=== PATIENT | female | born 1980 | race Caucasian/White ===

== ENCOUNTER 2023-09-23 12:07 | Emergency (ER) | payer OTHER, SELFPAY ==
[2023-09-23 12:17] VITALS: BP 111/87; PULSE 88; RESP 16; TEMP 36.5; O2SAT 100
--- NOTE | 2023-09-23 12:31 | ED.SKABFB ---
HPI - Skin/Abscess/Foreign Bdy General Chief complaint: Skin/Abscess/Foreign Body Stated complaint: RASH/NERVE PAIN Time Seen by Provider: 09/23/23 12:31 Source: patient, RN notes reviewed and old records reviewed Mode of arrival: ambulatory Limitations: no limitations History of Present Illness HPI narrative: 43 year old female presents to [facility] care with complaints of red raised rash to her upper right back scapula area starting on Thursday with extension of rash to her right lateral chest and to under right breast and middle right breast region today in patches, Patient reports that rash is painful, no exudates or drainage noted. Patient has been taking Ibuprofen and Tylenol for her disconfort. MD complaint: rash Onset (ago): day(s) (rash 3 rd day increased today) Location: back (right back to right side of chest under right breat and mid right breast) Severity scale (1-10): 6 Treatments prior to arrival: NSAID and other (Tylenol) Related Data Home Medications Medication Instructions Recorded Confirmed dextroamphetamine-amphetamine 10 10 mg PO DAILY 09/23/23 09/23/23 mg tablet hydrocodone 10 mg-acetaminophen 1 tablet PO QID PRN Migraine 09/23/23 09/23/23 325 mg tablet Headache Allergies Allergy/AdvReac Type Severity Reaction Status Date / Time Sulfa (Sulfonamide Allergy Unknown Skin Verified 09/23/23 12:29 Antibiotics) Reaction Review of Systems Review of Systems: CONSTITUTIONAL: Denies fever, chills, or sweats. CARDIOVASCULAR: Denies chest pain, palpitations, or edema. RESPIRATORY: Denies cough or dyspnea. SKIN: Reports rash to right scapula, right lateral chest under right breast and mid right breast, in red raised patches which are painful MUSCULOSKELETAL: Denies joint pain or myalgia. NEUROLOGIC: Denies headache, numbness, or weakness. 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 There is no relevant family history pertinent to the presenting complaint Exam Narrative: GENERAL: Well-appearing, well-nourished, and in no acute distress. HEAD: Normocephalic, atraumatic. EYES: PERRLA, conjunctivae clear, and EOMI. ENT: Mucous membranes moist. Oropharynx without edema, erythema or lesions., tonsils absent NECK: Supple. No lymphadenopathy CHEST: Clear to
== END 2023-09-23 12:46 | disposition home or self-care (01) ==
PROVIDERS: Emergency Provider Registered Nurse
DX: B02.9 Zoster without complications (principal); Z87.891 Personal history of nicotine dependence; Z85.820 Personal history of malignant melanoma of skin
CPT/HCPCS: 99213; G0463

== ENCOUNTER 2025-01-08 17:23 | Emergency (ER) | payer OTHER, SELFPAY ==
[2025-01-08 17:33] VITALS: BP 121/82; PULSE 95; RESP 16; TEMP 36.2; O2SAT 99
--- NOTE | 2025-01-08 17:42 | ED.WOUNDLAC ---
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 She cut the thumb on a metal fan blad, when she moved the fan while it was running. Says the front cage of the fan had been removed for cleaning. Bleeding controlled on arrival. Unsure of last tetanus. Related Data Home Medications ?Medication ?Instructions ?Recorded ?Confirmed ?Last Taken ?Type dextroamphetamine-amphetamine 10 10 mg PO DAILY 09/23/23 09/23/23 Unknown History mg tablet hydrocodone 10 mg-acetaminophen 1 tablet PO QID PRN Migraine 09/23/23 09/23/23 Unknown History 325 mg tablet Headache Allergies Allergy/AdvReac Type Severity Reaction Status Date / Time Sulfa (Sulfonamide Allergy Unknown Skin Verified 01/08/25 17:32 Antibiotics) Reaction Review of Systems Review of Systems: CONSTITUTIONAL: Denies body aches, fever, chills, or sweats. EYES: Denies visual changes, redness, or discharge. ENT: Denies rhinorrhea, congestion CARDIOVASCULAR: Denies chest pain, palpitations, or edema. RESPIRATORY: Denies cough or dyspnea. GASTROINTESTINAL: Denies abdominal pain, nausea, vomiting, or diarrhea. SKIN: per HPI MUSCULOSKELETAL: Denies back pain, joint pain, or myalgia. NEUROLOGIC: Denies headache, numbness, tingling, or weakness. 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 Please see nursing chart for further information. There is no relevant family history pertinent to the presenting complaint Exam Narrative: GENERAL: Well-appearing HEAD: Normocephalic, atraumatic. EYES: conjunctivae clear, and EOMI. ENT: Mucous membranes moist. Oropharynx without edema, erythema or lesions. NECK: Supple. No lymphadenopathy CHEST: Clear to auscultation. HEART: Regular rate and rhythm. SKIN: Warm, dry. right distal thumb with 1cm linear superficial laceration, bleeding controlled. CMS intact. NEURO: Alert and oriented x3. Course Course Emergency Course: Patient is aware of diagnosis, understands and agrees to treatment plan. Anticipatory guidance given. Patient agrees to follow-up as directed and is aware of reasons to seek care at the emergency department. Portions of this record may have been created with voice recognition software Level of Care: Express Care Visit Vital Signs Vital signs: Vital Signs Temperature 97.2 F L 01/08/25 17:33 Pulse Rate 95 01/08/25 17:33 Respiratory Rate 16 01/08/25 17:33 Blood Pressure 121/82 01/08/25 17:33 Pulse Oximetry 99 01/08/25 17:33 Temperature 97.2 F L 01/08/25 17:33 Pulse Rate 95 01/08/25 17:33 Respiratory Rate 16 01/08/25 17:33 Blood Pressure 121/82 01/08/25 17:33 Pulse Oximetry 99 01/08/25 17:33 Reviewed Procedures Laceration right thumb: Date: 01/08/25 Size (cm): 1 Description: linear and clean Depth: simple, single layer Pre-repair: other (cleansed with skintegrity and sterile water) ====== Skin Level ====== Skin layer closed with: dermabond and steri strips ====== Subcutaneous Layer ====== ====== Muscle Layer ====== ====== Tendon Layer ====== MDM - Wound/Laceration MDM Narrative Medical decision making narrative: Discussed physical exam findings. Superficial lac to right thumb tolerated dermabond and steri strips, metal finger splint applied. Advised supportive measures and signs/symptoms to go to the ER. Pt is appropriate for outpt treatment and f/u. Differential Diagnosis Differential diagnosis: Likely laceration, abrasion and avulsion of skin Discharge Plan Discharge Clinical Impression: Laceration of finger Patient Disposition: Home Condition: Stable Instructions: Antibiotic Form, Skin Adhesive Strips (ED) Additional Instructions: The glue film will fall off in 5 to 10 days Steri-Strips will roll off on their own within 14 days Do not soak your wound. Avoid frequent or prolonged contact with water, including heavy perspiration. This may loosen the skin glue before the wound is healed. Keep the area clean and dry - cleanse with warm water and mild soap and allow to fully dry. Watch for worsening symptoms including pain, redness, swelling, streaking, pus/drainage, fever. Go to the ER with any of these symptoms or concerns. Follow up with primary care provider in 1 week as needed. Patient Language: Bruneian Prescriptions: No Action dextroamphetamine-amphetamine 10 mg tablet 10 mg PO DAILY hydrocodone-acetaminophen 10-325 mg tablet 1 tablet PO QID PRN (Reason: Migraine Headache) valacyclovir [Valtrex] 1 gram tablet 1,000 mg PO TID Qty: 21 0RF Rx Instructions: take as prescribed Follow-up/Referrals: PHYSICIAN,LIQUEFACTION AND REGASIFICATION HELPER [Primary Care Provider] - Time of Disposition: 17:47
[2025-01-08] MEDS: TETANUS,DIPHTHERIA,AC PERTUSSIS ADULT (0.5 ML) BOOSTRIX IM (17:53)
== END 2025-01-08 17:58 | disposition home or self-care (01) ==
PROVIDERS: Emergency Provider Nurse Practitioner Family
DX: S61.011A Laceration without foreign body of right thumb without damage to nail, initial encounter (principal); W45.8XXA Other foreign body or object entering through skin, initial encounter; Z23 Encounter for immunization; Z87.891 Personal history of nicotine dependence; Z85.820 Personal history of malignant melanoma of skin
CPT/HCPCS: 12001; 90471; 90715; 99212; G0463